=== PATIENT | male | born 1945 | race Caucasian/White ===

== ENCOUNTER 2018-04-15 12:01 | Emergency (ER) | payer MEDICARE, BC ==
[2018-04-15] MEDS ORDERED: Diph,Pert(Acell),Tet Vac 0.5 ML SYR IM ONE (12:18)
--- NOTE | 2018-04-15 12:22 | Emergency Department Record ---
History of Present Illness - General Chief Complaint: Laceration(s) Stated Complaint: LACERATION Time Seen by Provider: 04/15/18 12:09 Source: Patient Mode of Arrival: Ambulatory Limitations: No limitations - History of Present Illness Initial Commments: The patient cut his L thumb about an half hour ago. He denies any numbness or tingling. His last Td was at least 8 years ago. The patient denies any numbness or tingling. Onset/Timin -: Minutes(s) Place: Home Context: Accidental Associated Symptoms: None - Edith Coma Scale Eye Response: (4) Open spontaneously Motor Response: (6) Obeys commands Verbal Response: (5) Oriented Edith Total: 15 - Related Data Hx Tetanus Toxoid Vaccination: Yes Year of Tetanus Vaccination: 2009 Patient Tetanus UTD (within 5 yrs): No Home Medications Medication Instructions Recorded Confirmed Last Taken Acetaminophen 1,000 mg PO ASDIR 04/15/18 04/15/18 Unknown Amlodipine Besylate [Norvasc] 10 mg PO DAILY 04/15/18 04/15/18 Unknown Aspirin [Aspir-Low] 81 mg PO QHS 04/15/18 04/15/18 Unknown Atorvastatin Calcium 40 mg PO QHS 04/15/18 04/15/18 Unknown Cholecalciferol (Vitamin D3) 1,000 unit PO DAILY 04/15/18 04/15/18 Unknown [Vitamin D3] Finasteride [Proscar] 5 mg PO QHS 04/15/18 04/15/18 Unknown Lisinopril 40 mg PO QHS 04/15/18 04/15/18 Unknown Tamsulosin HCl [Flomax] 0.8 mg PO QHS 04/15/18 04/15/18 Unknown Vardenafil HCl [Levitra] 20 mg PO ASDIR 04/15/18 04/15/18 Unknown Previous Rx's Medication Instructions Recorded Cephalexin [Keflex] 500 mg PO TID #21 cap 04/15/18 Allergies Allergy/AdvReac Type Severity Reaction Status Date / Time No Known Drug Intolerances Allergy Unknown no Unverified 04/15/18 12:10 allergies Travel Screening - Travel/Exposure Within Last 30 Days Have you traveled within the last 30 days?: No Review of Systems Constitutional: Denies: Chills, Fever Eyes: Denies: Eye discharge ENT: Denies: Congestion Respiratory: Denies: Cough, Dyspnea Past Medical History - SOCIAL HISTORY Smoking Status: Never smoker Alcohol Use: None Drug Use: None - RESPIRATORY Hx Respiratory Disorders: No - CARDIOVASCULAR Hx Cardio Disorders: Yes Hx Hypertension: Yes Comment:: high cholesterol - NEURO Hx Neuro Disorders: No - GI Hx GI Disorders: No - Hx Genitourinary Disorders: Yes Hx Prostate Problems: Yes - ENDOCRINE Hx Endocrine Disorders: No - MUSCULOSKELETAL Hx Musculoskeletal Disorders: Yes Hx Arthritis: Yes - PSYCH Hx Psych Problems: No - HEMATOLOGY/ONCOLOGY Hx Hematology/Oncology Disorders: No Family Medical History Any Significant Family History?: No Physical Exam - General General Appearance: Alert, Oriented x3, Cooperative, No acute distress - Head Head exam: Atraumatic, Normocephalic, Normal inspection - Eye Eye exam: Normal appearance - Extremities Extremities exam: Full ROM (There is normal ROM to the L thumb DIP joint.), Tenderness (Only over the lac.). negative: Normal inspection (There is a 2 cm stellate lac to the thumb pad.), Joint swelling Image of Finger Tip: 1 - Flap lac. Course Vital Signs 04/15/18 12:04 Temperature 98.1 F Pulse Rate 76 Respiratory 20 Rate Blood Pressure 165/86 Pulse Ox 97 - Reevaluation(s) Reevaluation #1: Procedure note: the L thumb was anesth. with 3 Cc's Sensoricaine. The lac was prepped with betadine and extensively debrided and lavaged with sterile saline. There was no bone or tendon visible in the wound. The lac was a flap with the lateral thumb pad almost completely avulsed off. The lac was then tacked into place with 5 4.0 nylon sutures. There were no complications. There was some skin tissue missing from the flap also that the patient understands will need to granulate in. 04/15/18 13:12 04/15/18 13:15 Reevaluation #2: I did offer to send the patient to a hand surgeon but he declined and just [facility]. 04/15/18 13:16 Medical Decision Making - Data Complexity MDM Data: X-Ray Ordered and/or Reviewed - Radiology Data Radiology results: Report reviewed (L thumb: Subtle distal tuft avulsion fx. ) Disposition Disposition: Discharge Clinical Impression: Thumb laceration Qualifiers: Encounter type: initial encounter Damage to nail status: unspecified Foreign body presence: without foreign body Laterality: left Qualified Code(s): S61.012A - Laceration without foreign body of left thumb without damage to nail , initial encounter Disposition: Home, Self-Care Condition: (2) Stable Instructions: Laceration (ED) Additional Instructions: Keep dry and dressed for 2 days and take your Keflex. Please have the wound rechecked in 2 days with your PCP or the [facility]. Watch for signs of infection and have the sutures removed in 10 days. Prescriptions: Cephalexin [Keflex] 500 mg PO TID #21 cap Forms: Patient Portal Access Time of Disposition: 13:18 Quality - Quality Measures Quality Measures: N/A - Blood Pressure Screening View Details: Yes Does Patient Have Any of the Following: No Blood Pressure Classification: Pre-Hypertensive BP Reading Systolic Measurement: 165 Diastolic Measurement: 86 Screening for High Blood Pressure: < Pre-Hypertensive BP, F/U Documented > [ [id number]] Pre-Hypertensive Follow-up Interventions: Referral to alternative/primary care provider.
--- NOTE | 2018-04-16 14:15 | RADIOLOGY REPORT ---
EXAM: LEFT FIRST DIGIT HISTORY: INJURY. TECHNIQUE: Three views of the left first digit were performed. FINDINGS: There is a small avulsion fracture deformity of the distal tuft. There is a soft tissue laceration. There is mild degenerative change. IMPRESSION: SOFT TISSUE LACERATION WITH SMALL AVULSION FRACTURE DEFORMITY. MILD DEGENERATIVE CHANGE. JOB NUMBER: [id number] [facility]
== END 2018-04-15 13:35 | disposition home or self-care (01) ==
LOC: ER 12:01
DX: S61.012A Laceration without foreign body of left thumb without damage to nail, initial encounter (principal); W29.8XXA Contact with other powered hand tools and household machinery, initial encounter; I10 Essential (primary) hypertension; Y92.009 Unspecified place in unspecified non-institutional (private) residence as the place of occurrence of the external cause
CPT/HCPCS: 12041; 90715; 96372; 99283; 99284